=== PATIENT | female | born 1955 | race African-American/Black ===

== ENCOUNTER 2017-01-31 09:53 | Outpatient (CLI) | payer OTHER ==
--- NOTE | 2017-01-31 11:48 | MMO ---
BILATERAL SCREENING MAMMOGRAM: Date: 01/31/17 HISTORY: 61-year-old female. Routine screening mammography. COMPARISON: 01/09/16, 01/05/15, and 12/14/13. TECHNIQUE: CC and MLO views of both breasts are submitted for interpretation. This patient's mammogram was reviewed with the assistance of computer-aided detection. FINDINGS: The breasts are composed of scattered fibroglandular tissue. Bilaterally, no suspicious dominant mas s, architectural distortion, or suspicious calcifications. Benign-appearing calcification left breas t. Stable biopsy clip in the right breast. IMPRESSION: BIRADS 2: Benign Finding(s) RECOMMENDATION: Annual mammogram. POS: [facility]
== END 2017-01-31 09:54 | disposition home or self-care (01) ==
LOC: MAMMO 09:53
PROVIDERS: ATTEND Nurse Practitioner
DX: Z12.31 Encounter for screening mammogram for malignant neoplasm of breast (principal)
CPT/HCPCS: 77067; G0202

== ENCOUNTER 2017-04-11 12:50 | Emergency (ER) | payer OTHER | END 2017-04-11 14:43 | disposition home or self-care (01) | LOC: ERS 12:50 | DX: K05.00 Acute gingivitis, plaque induced (principal); K02.9 Dental caries, unspecified; E78.5 Hyperlipidemia, unspecified; M10.9 Gout, unspecified; I10 Essential (primary) hypertension; Z79.82 Long term (current) use of aspirin; Z79.899 Other long term (current) drug therapy | CPT/HCPCS: 99282 ==

== ENCOUNTER 2017-07-04 18:21 | Observation (INO) | payer OTHER ==
[2017-07-04] MEDS ORDERED: Morphine 4 MG/ML VIAL ONE (22:12)
[2017-07-04 22:54] VITALS: BMI 34.4
[2017-07-05] MEDS: Acetaminophen 500 MG TAB PO PRN ×2 (04:53→15:52)
[2017-07-05] MEDS ORDERED: Acetaminophen 500 MG TAB PO SCH (05:00)
[2017-07-05] MEDS ORDERED: Aspirin 325 MG TAB PO SCH (09:00)
--- NOTE | 2017-07-05 12:00 | HP ---
PRIMARY CARE PHYSICIAN: Coby Wheat D.O. CHIEF COMPLAINT: Vision loss. HISTORY OF PRESENT ILLNESS: Ms. Samuel is a pleasant 62-year-old lady who was seen at [facility] on 07/05/2017. She reports that she developed vision deficits in the right eye over the last 4 days. She reports th at it is the lateral vision that is affected. She also reports left-sided headache, sharp, 8/10, non radiating, on and off. No known aggravating or relieving factors, accompanied by nausea and dizzines s. She reports generalized body cramps. When I saw her, she reported that headache has resolved. S he also reports that her vision deficit has resolved. She denied any other motor or sensory symptoms, although she reported paresthesias while she was in [facility] emergency room. REVIEW OF SYSTEMS: The following complete review of systems was negative, unless otherwise mentioned in the HPI or below: Constitutional: Weight loss or gain, ability to conduct usual activities. Skin: Rash, itching. Eyes: Double vision, pain. ENT/Mouth: Nose bleeding, neck stiffness, pain, tenderness. Cardiovascular: Palpitations, dyspnea on exertion, orthopnea. Respiratory: Shortness of breath, wheezing, cough, hemoptysis, fever or night sweats. Gastrointestinal: Poor appetite, abdominal pain, heartburn, nausea, vomiting, constipation, or diarr hea. Genitourinary: Urgency, frequency, dysuria, nocturia. Musculoskeletal: Pain, swelling. Neurologic/Psychiatric: Anxiety, depression. Allergy/Immunologic: Skin rash, bleeding tendency. PAST MEDICAL HISTORY: Significant for dyslipidemia, gout, hypertension, and obesity. PAST SURGICAL HISTORY: Hysterectomy. SOCIAL HISTORY: The patient denies tobacco use, alcohol use or recreational drug use. FAMILY HISTORY: She denies any family history of stroke. ALLERGIES: No known drug allergies. CURRENT MEDICATIONS: Allopurinol 100 mg daily, aspirin 81 mg daily, lisinopril 10 mg daily and multi vitamins 1 tablet daily. PHYSICAL EXAMINATION: GENERAL: On examination, Ms. Samuel is awake and alert, not in acute distress. VITAL SIGNS: Blood pressure is 106/61, pulse is 90. She is breathing at rate of 18, and saturating 97% on room air. She is afebrile. She is obese, with BMI of 34.4. EYES: No scleral icterus. No conjunctival pallor. ENT: Moist mucosal membranes, no oropharyngeal erythema or exudates. NECK: Supple, nontender, normal range of movement. Trachea is midline. RESPIRATORY: Accessory muscles of breathing are not active. Chest wall movements are symmetric bila terally. LUNGS: Clear to auscultation without wheeze, rhonchi or crepitations. CARDIOVASCULAR: S1 and S2 are heard, regular. Peripheral pulses palpable. No carotid bruit, no per icardial rub. ABDOMEN: Soft, nontender, bowel sounds heard, no hepatomegaly, no splenomegaly. NEUROLOGIC: Cranial nerves II-XII are intact. In particular, no visual field deficits on confrontat ional field testing. No focal motor or sensory deficits. Deep tendon reflexes 2+, plantar reflexes downgoing bilaterally. SKIN: No rashes or subcutaneous nodules. MUSCULOSKELETAL: Power is 5/5 in all 4 extremities. Normal range of movement at all major extremity joints. LYMPHATIC: No cervical lymphadenopathy. PSYCHIATRIC: Normal mood, normal affect, patient is oriented to person, place, and time. IMAGING DATA AND LABORATORY DATA: Ms. Samuel's labs and investigations were reviewed. I reviewed her electrocardiogram, which shows sinus bradycardia, no ST changes to suggest an acute coronary syndrom e. I also reviewed her noncontrast CT scan of the brain, which showed diffuse chronic ischemic torres es with any acute findings. She has a normal ESR, elevated C-reactive protein of 0.85, unremarkable CBC, normal INR of 1.0, unremarkable comprehensive metabolic profile. ASSESSMENT AND PLAN: Ms. Samuel is a pleasant 62-year-old lady who was seen at [facility] on 07/05/2017. Her problem list includes: 1. Ischemic cerebrovascular accident: Suspected, based on her presentation. Her symptoms lasted mo re than 24 hours. Temporal arteritis is less likely. She is nontender over the left judaism. Her vi joan symptoms are contralateral to the headache. We will continue her on aspirin, start statin and c heck fasting lipid profile. Neurology Service has been consulted by emergency room physician. 2. She is also awaiting MR angiogram of head and neck as well as MRI of the brain and a 2D echocardi ogram. 3. Gout: Continue allopurinol. Gout is stable. 4. Hypertension: Monitor vital signs, titrate antihypertensives as needed. 5. Obesity: Patient to follow up with her primary care physician. Many thanks for allowing me to participate in your patient's care. Please feel free to contact me wi th any questions or concerns. LEVEL OF RISK: High. LEVEL OF COMPLEXITY: High.
--- NOTE | 2017-07-05 15:23 | MRI ---
MRI BRAIN WITH AND WITHOUT CONTRAST: CLINICAL HISTORY: Pain, right side headache, left side visual disturbance. COMPARISON: Reference is made to preceding noncontrast head CT, previous day. FINDINGS: There is no acute territorial infarction, mass effect, midline shift, or ventriculomegaly. Moderate chronic microvascular ischemic disease is present involving the bilateral cerebral white matter. No pathologic intraaxial enhancement evident. There is no hemorrhagic susceptibility, intracranially. T here is partially empty sella noted. IMPRESSION: 1. No acute territorial infarction or mass effect. 2. Moderate chronic microvascular ischemic disease. POS: [facility]
--- NOTE | 2017-07-05 15:31 | MRI ---
MRI NATIVE OF [place] NONCONTRAST WITH 3D VOLUME RENDERING: CLINICAL HISTORY: Headache and visual disturbance, pain. FINDINGS: There is no high-grade stenosis or occlusion involving the arterial segment of the [place]. No discrete intracranial aneurysm is present. There is redundancy and tortuosity of the A1 segment right DAPHNEY. Tortuous and the adjacent skull base limit visualization of the skull base course of the terminal ICA bilaterally. The imaged distal vertebral and basilar artery are patent. IMPRESSION: No significant abnormality of the [place] identified. POS: [facility]
--- NOTE | 2017-07-05 15:33 | CON ---
DATE OF CONSULTATION: 07/05/2017 REFERRING PHYSICIAN: Perfecto Medrano D.O. REASON FOR CONSULTATION: Right side vision loss and headache. HISTORY OF PRESENT ILLNESS: Ms. Samuel is a pleasant 62-year-old -[place] female, who has bee n considered for evaluation of left-sided headache and right-sided blurry vision. She reports that s he was working on Friday while at work, she developed the blurry vision in her periphery of her ri ght eye. She felt like there was film onto the periphery of the right side. She also noted headache onto the left frontotemporal region. She also started noticing dizziness and lightheadedness where she felt like she was going to pass out. She continued to have these symptoms over the next 3 days a nd as her symptoms were not improving, she decided to present to the [facility]. She states that she continues to have the headache on the left side. She has no prior history of headach es, although she did have episodes of migraine several years ago, but has not had in the past few yea rs. She denies chest pain, palpitation, dysarthria, dysphagia, difficulty with balance, numbness, an d tingling or weakness in upper or lower extremities. PAST MEDICAL HISTORY: Significant for hypertension, dyslipidemia, obesity, and gout. PAST SURGICAL HISTORY: Significant for hysterectomy. SOCIAL HISTORY: She denies smoking, alcohol use, or illicit drug use. She is . She currentl y works in a correction. FAMILY HISTORY: None significance. CURRENT MEDICATIONS: Please review MAR. ALLERGIES: No known drug allergies. REVIEW OF SYSTEMS: As mentioned above in HPI, otherwise negative. PHYSICAL EXAMINATION: VITAL SIGNS: Blood pressure of 132/76, pulse of 66, temperature of 97.8, respirations of 18, O2 sats 98% on room air. GENERAL: Well-developed, well-nourished -[place] female, in no apparent distress. RESPIRATORY: Clear to auscultation bilaterally. CARDIOVASCULAR: Regular rate and rhythm. NEUROLOGIC: Mental status: The patient is awake, alert, and oriented x3. Speech and language: Flu ent speech. Cranial nerves: Pupils are 3 mm and reactive. Visual alonso are intact. External musc les are intact. No nystagmus is noted. Face is symmetric. Tongue and uvula midline. Motor exam sh owed normal tone and bulk with 5/5 strength in both lower extremities. Sensory: Sensation is intact and symmetric. Deep tendon reflexes: 2+ reflexes in both upper and lower extremities. Babinski: Plantar responses flexion bilaterally. Coordination intact to [id number]-[id number]-yypetg tapping bilaterally . LABORATORY DATA: Reviewed, which included CBC, CMP, TSH, vitamin D, lipid profile, sedimentation rat e and CRP, which is significant for CRP of 0.85. Sed rate of 43, otherwise unremarkable. IMAGING STUDIES: MRI brain without contrast was reviewed which showed no acute intracranial abnormal ity. MRI head and neck were reviewed, which showed no intracranial or extracranial vascular abnormal ity. Official reports are still pending. IMPRESSION: 1. Blurry vision on the right eye. 2. Headache. DISCUSSION: Ms. Samuel is a pleasant 62-year-old -[place] female, who presented with the epis ode of blurry vision in the right eye along with headache on the left frontotemporal region. I have reviewed her MRI brain and MRA head and neck which are unremarkable. At this time, I have also revie wed her sed rate and CRP, which are mildly elevated. Based on the description of her symptoms, I do not think that she has temporal arteritis. Also, her sed rate and CRP are very mildly elevated, whic h does not correlate with temporal arteritis. I have advised her that she needs to be seen by ophtha lmologist as outpatient to be further evaluated. Her headaches are likely migraine in origin. I wou ld recommend giving her IV Depacon 500 mg 1 time dose to help with the headache. If her headache is better, she is okay to be discharged to home with follow up with high pressure kettle operator as outpatient who ca n decide whether she needs a temporal artery biopsy. Thank you for consultation.
--- NOTE | 2017-07-05 16:33 | MRI ---
MRA NECK WITH AND WITHOUT CONTRAST AND WITH 3D REFORMATTED IMAGING 07/05/17 CLINICAL HISTORY: Pain, headache, visual disturbance, clinical evidence of CVA. FINDINGS: The proximal great vessels are limited in assessment by artifact. No obvious high grade stenosis is seen at the origins that emanate from the aortic arch level. Visualized bilateral subclavian arteries are grossly patent. Bilateral vertebral arteries demonstrate a patent course without high grade sten osis or occlusion. Limited visualization at the origin of each common carotid artery, but otherwise n o high grade stenosis or occlusion. There is mild irregularity at the origin of the cervical left ICA which may be on the basis of atherosclerosis, without an obvious hemodynamically significant stenosi s. IMPRESSION: Mild atherosclerosis involving the origin of the cervical left ICA. No high grade stenosis or occlusi on involving the major arterial system of the neck. POS: [facility]
[2017-07-05] MEDS ORDERED: Atorvastatin Calcium 20 MG TAB PO SCH (21:00)
[2017-07-06 04:07] VITALS: TEMP 97.5
[2017-07-06 05:31] LABS: Cardiac Risk 4.5 (Less than 4.5)
[2017-07-06] MEDS ORDERED: Aspirin 325 mg Enteric Coated Tablet PO SCH (09:00)
[2017-07-06] MEDS ORDERED: Multivit, Therapeutic 1 TAB PO SCH (09:00)
[2017-07-06] MEDS ORDERED: Lisinopril 10 MG TAB PO SCH (09:00)
[2017-07-06] MEDS ORDERED: Allopurinol 100 MG TAB PO SCH (09:00)
--- NOTE | 2017-07-06 11:18 | PDOC.PN ---
- Subjective Encounter Start Date: 07/06/17 Encounter Start Time: 07:20 -: old records requested/rev Patient seen and examined. No new complaints. No overnight events - Objective MAR Reviewed: Yes Vital Signs & Weight: Vital Signs (12 hours) Temp Pulse Resp BP Pulse Ox 07/06/17 08:00 97.5 F L 54 L 16 134/78 97 07/06/17 07:33 97.5 F L 62 12 07/06/17 04:00 97.5 F L 62 12 149/72 H 96 07/06/17 00:00 97.8 F 55 L 16 141/78 H 97 Weight Weight 219 lb 12.8 oz I&O: 07/05/17 07/06/17 07/07/17 06:59 06:59 06:59 Intake Total 480 Output Total 0 Balance 480 Radiology Reviewed by me: Yes (MRI, MRA) EKG Reviewed by me: Yes (NSR) Phys Exam - Physical Examination Constitutional: NAD HEENT: PERRLA, moist MMs, sclera anicteric Neck: no JVD, supple Respiratory: no wheezing, no rales, no rhonchi Cardiovascular: RRR, no significant murmur, no rub Gastrointestinal: soft, non-tender, no distention, positive bowel sounds Musculoskeletal: no edema, pulses present Neurological: non-focal, normal sensation, moves all 4 limbs Psychiatric: normal affect, A&O x 3 Skin: no rash, normal turgor Dx/Plan (1) Blurred vision, left eye Code(s): H53.8 - OTHER VISUAL DISTURBANCES Status: Acute (2) Headache Code(s): R51 - HEADACHE Status: Acute (3) Dyslipidemia Code(s): E78.5 - HYPERLIPIDEMIA, UNSPECIFIED Status: Chronic (4) Gout Code(s): M10.9 - GOUT, UNSPECIFIED Status: Chronic (5) Hypertension Code(s): I10 - ESSENTIAL (PRIMARY) HYPERTENSION Status: Chronic (6) Obesity (BMI 30.0-34.9) Code(s): E66.9 - OBESITY, UNSPECIFIED Status: Chronic - Plan cont current plan of care * medication reviewed as below * symptomatic treatment * discharge today * see discharge summery. Review of Systems - Review of Systems Eyes: negative: Pain, Vision Change, Conjunctivae Inflammation, Eyelid Inflammation, Redness, Other ENT: negative: Ear Pain, Ear Discharge, Nose Pain, Nose Discharge, Nose Congestion, Mouth Pain, Mouth Swelling, Throat Pain, Throat Swelling, Other Respiratory: negative: Cough, Dry, Shortness of Breath, Hemoptysis, SOB with Excertion, Pleuritic Pain, Sputum, Wheezing Cardiovascular: negative: chest pain, palpitations, orthopnea, paroxysmal nocturnal dyspnea, edema, light headedness, other Gastrointestinal: negative: Nausea, Vomiting, Abdominal Pain, Diarrhea, Constipation, Melena, Hematochezia, Other Genitourinary: negative: Dysuria, Frequency, Incontinence, Hematuria, Retention , Other Musculoskeletal: negative: Neck Pain, Shoulder Pain, Arm Pain, Back Pain, Hand Pain, Leg Pain, Foot Pain, Other Skin: negative: Rash, Lesions, Virgil, Bruising, Other - Medications/Allergies Allergies/Adverse Reactions: Allergies Allergy/AdvReac Type Severity Reaction Status Date / Time No Known Allergies Allergy Verified 07/04/17 22:51 Medications: Current Medications Acetaminophen (Tylenol) 1,000 mg PO Q6H PRN PRN Reason: Headache/Fever or Pain Last Admin: 07/05/17 15:52 Dose: 1,000 mg Allopurinol (Zyloprim) 100 mg PO DAILY [facility] Last Admin: 07/06/17 08:30 Dose: 100 mg Aspirin (Ecotrin) 325 mg PO DAILY [facility] Last Admin: 07/06/17 08:30 Dose: 325 mg Atorvastatin Calcium (Lipitor) 20 mg PO HS [facility] Last Admin: 07/05/17 20:41 Dose: 20 mg Lisinopril (Zestril) 10 mg PO DAILY [facility] Last Admin: 07/06/17 08:30 Dose: 10 mg Multivitamins (Theragran) 1 tab PO DAILY [facility] Last Admin: 07/06/17 08:31 Dose: 1 tab Sodium Chloride (Flush - Normal Saline) 10 ml IVF PRN PRN PRN Reason: Saline Flush
[2017-07-06 12:19] VITALS: BP 134/84
--- NOTE | 2017-07-06 13:07 | DIS ---
DATE OF ADMISSION: 07/04/2017 DATE OF DISCHARGE: 07/06/2017 PRIMARY CARE PHYSICIAN: Dr. Fredo Ragland. DISCHARGE DISPOSITION: Home. PRIMARY DISCHARGE DIAGNOSES: Blurred vision in left eye, resolved; headache, likely due to migraine. SECONDARY DISCHARGE DIAGNOSES: Obesity with body mass index 34, hypertension, gout, and dyslipidemia . PRIMARY PROCEDURE/OPERATION: None. RADIOLOGICAL INVESTIGATION: MRI brain normal. Neck MRA normal. SIGNIFICANT LABORATORY DATA: ESR 43. CBC normal. CRP 0.85, LDL 155. DISCHARGE MEDICATIONS: Allopurinol 100 mg p.o. daily, aspirin 81 mg p.o. daily, Lipitor 20 mg p.o. a t bedtime, lisinopril 10 mg p.o. daily, and multivitamin 1 tablet p.o. daily. CONTRAINDICATIONS: None. CODE STATUS: FULL CODE. INPATIENT ASPNET DEVELOPER: Dr. Сергей Velasquez was consulted while in hospital. TEST RESULTS PENDING ON DISCHARGE: None. ALLERGIES: No known drug allergy. DISCHARGE PLAN: Post hospital, patient will follow up with primary care physician as instructed. HOSPITAL COURSE: A 62-year-old female with above-mentioned medical problem, who came to emergency ro om with complaint of blurred vision in her left eye along with headache. The patient had CT brain wh ich was normal. Her neurological examination was normal. We consulted Neurology and they were not s uspecting any temporal arteritis. The patient's blurred vision was improved next day. Her headache resolved and that headache improved with sodium valproic acid. We suspected migraine and possibly bl urred vision also related with migraine as well, but we advised this patient to follow up with Ophtha lmology as an outpatient basis. Her LDL cholesterol was high and that is why we started Lipitor on h er discharge medications. Rest of medication will be continued as per previous. The patient is seen and examined at bedside today. Please see my progress note from today for furthe r details.
--- NOTE | 2017-07-12 20:13 | EKG ---
Test Reason : Blood Pressure : / mmHG Vent. Rate : 055 BPM Atrial Rate : 055 BPM P-R Int : 176 ms QRS Dur : 084 ms QT Int : 464 ms P-R-T Axes : 025 -11 071 degrees QTc Int : 443 ms Sinus bradycardia Minimal voltage criteria for LVH, may be normal variant Abnormal ECG Confirmed by NATANAEL BUSH ([id number]), science editor JOSE TORRES ([id number]) on 07/12/2017 8:12:36 PM Referred By: Confirmed By:NATANAEL BUSH
== END 2017-07-06 15:05 | disposition home or self-care (01) ==
LOC: ERS 18:21 → 2SE 20:21
PROVIDERS: ADMIT Internal Medicine; ATTEND Internal Medicine
DX: H53.8 Other visual disturbances (principal); R51 Headache; I10 Essential (primary) hypertension; M10.9 Gout, unspecified; E78.5 Hyperlipidemia, unspecified; I65.22 Occlusion and stenosis of left carotid artery; E66.9 Obesity, unspecified; Z68.34 Body mass index [BMI] 34.0-34.9, adult; Z79.82 Long term (current) use of aspirin; Z79.899 Other long term (current) drug therapy
CPT/HCPCS: 36415; 70544; 70549; 70553; 80061; 85652; 86140; 93005; 93306; 96374; G0378; J2270

== ENCOUNTER 2019-04-28 20:30 | Outpatient (CLI) | payer MEDICARE | END 2019-04-28 20:31 | disposition home or self-care (01) | LOC: SLEEPLAB 20:30 | PROVIDERS: ATTEND Nurse Practitioner | DX: G47.33 Obstructive sleep apnea (adult) (pediatric) (principal); R06.83 Snoring; E66.9 Obesity, unspecified; I10 Essential (primary) hypertension | CPT/HCPCS: 95810 ==

== ENCOUNTER 2019-05-15 20:02 | Observation (INO) | payer MEDICARE ==
[2019-05-15] MEDS ORDERED: Lorazepam 2 MG/ML VIAL ONE (21:32)
[2019-05-15 22:42] VITALS: BMI 38.8
[2019-05-16] MEDS ORDERED: Acetaminophen 650 MG Suppository PR PRN (00:06)
[2019-05-16] MEDS: Sodium Chloride 0.45% 1,000 ML IV SCH ×2 (01:00→15:25)
[2019-05-16 01:01] LABS: Troponin I Less than 0.010 ng/mL (< 0.028)
--- NOTE | 2019-05-16 01:07 | HP ---
TIME OF ASSESSMENT: 0. CHIEF COMPLAINT: Diffuse muscle cramping and chest pain. HISTORY OF PRESENT ILLNESS: Ms. Samuel is a 64-year-old woman, with known history of hyperlipidemia, hypertension, and gout, who presents due to diffuse leg cramping that started yesterday. The patient states she noticed cramping in her calves at night and in her feet. Reports cramping in her arms when she uses her arms to set herself up. She states this was worse today and she has felt generally drained. Reports noting some dysuria for the last week. Also reports having 1 episode of chest pain yesterday that lasted 5 minutes and was in the left side of her chest, right underneath the breast. The patient describes this as a squeezing, which again only lasted 5 minutes and resolved on its own. She had no associated shortness of breath. Denies having any cough or hemoptysis. No recent fevers. States that discomfort was nonradiating. It seemed to be relieved after belching. Today, the patient denies experiencing any chest pain. She initially presented to [place] [facility] and had an EKG done there that showed new T-wave inversion in the lateral leads. Therefore, she was referred here for ACS rule out. In the emergency department here, she had a repeat EKG that was normal with no ST changes or T-wave abnormalities. She had a heart rate of 65. The patient had been given aspirin and 1 L of normal saline at [place] [facility]. Here, she was given 1 mg of lorazepam IV. She has had a chest x-ray done showing no acute cardiopulmonary process. Of note, the patient has had an echo done in the past in July 2017, which showed an EF of 50% to 55% with mildly dilated left atrium, mild MR, AR, and TR. The patient has had a urinalysis done which was notable for 100 of protein, otherwise unremarkable. PAST MEDICAL HISTORY: 1. Hypertension. 2. Hyperlipidemia. 3. Gout. 4. Nephrolithiasis. PAST SURGICAL HISTORY: Hysterectomy. SOCIAL HISTORY: The patient denies any tobacco use, alcohol consumption, or illicit drug use. ALLERGIES: NO KNOWN DRUG ALLERGIES. CURRENT MEDICATIONS: 1. Allopurinol. 2. Aspirin. 3. Lisinopril. 4. Multivitamin. 5. Atorvastatin. PHYSICAL EXAMINATION: GENERAL: The patient appears well developed, well nourished, is in no acute distress. VITAL SIGNS: Temperature 97.5, pulse 69, respirations 16, O2 saturation 98% on room air, blood pressure 153/74. HEENT: Normocephalic and atraumatic. Pupils are equal, round, and reactive to light. Sclerae without icterus. Oropharynx is clear. NECK: Supple. LUNGS: Clear to auscultation bilaterally without any wheezes, rales, or rhonchi. CARDIAC: Regular rate and rhythm without audible murmurs, rubs, or gallops. No reproducible chest wall tenderness. ABDOMEN: Soft, nontender, nondistended. Normoactive bowel sounds present. No guarding or rigidity. No renal angle tenderness. EXTREMITIES: No lower extremity edema. NEUROLOGIC: Alert and oriented x3. SKIN: Warm and dry. INVESTIGATIONS: As mentioned above in HPI. IMPRESSION AND PLAN: Ms. Samuel is a 64-year-old woman who presents with diffuse muscle cramping since yesterday, occurring in her arms and legs, at times abdomen. The patient states she has been more active recently helping a friend clean her home, but states she has been trying to maintain adequate hydration. LABORATORY STUDIES: Notable for EYAL. BUN 21, creatinine 1.19, GFR 55. The patient's symptoms likely associated with dehydration. Potassium is within normal range, but we will check her magnesium level. CK is elevated. ASSESSMENT AND PLAN: 1. Chest pain. The patient reported having 1 episode of chest pain yesterday, lasting 5 minutes and has not recurred since then. EKG had shown T-wave inversion at [facility] and when repeated here, it was unremarkable. Given her past medical history, she was admitted for acute coronary syndrome workup. Troponins have been negative x3. We will go ahead and plan to keep her n.p.o. with plans to have her undergo a stress test, which she has not had done in the past. 2. Hypertension. Monitor blood pressure and resume home medications once verified. 3. Hyperlipidemia. Continue home medications. 4. Gastrointestinal prophylaxis with famotidine. 5. Code status is full. Surrogate decision maker is her , Evelio Samuel. The patient's case was discussed with attending who agrees upon the care as described above. Job ID: [id number]
[2019-05-16 05:22] LABS: #Eosinphils 0.2 thou/uL (0.0-0.7); #Lymphocytes 2.9 thou/uL (1.20-3.40); #Monocytes 0.5 thou/uL (0.11-0.59); #Neutrophils 4.3 thou/uL (1.40-6.50); %Basophils 0.4 % (0.0-1.0); %Eosinophils 2.2 % (0.0-10.0); %Monocytes 6.7 % (0.0-10.0); %Neutrophils 53.8 % (42.0-75.0); Hemoglobin 12.4 g/dL (12.0-16.0); Mean Corpuscular HGB CONC 32.8 g/dL (32.0-36.0); Mean Corpuscular Hemoglobin 26.8 pg (27.0-31.0); Mean Corpuscular Volume 81.5 fL (78.0-98.0); Mean Platelet Volume 9.2 fL (7.4-10.4); Platelet Count 211 thou/uL (130-400); RBC Distribution Width 14.6 % (11.5-14.5); Red Blood Cell (RBC) Count 4.65 mill/uL (4.20-5.40); White Blood Cell (WBC) Count 7.9 thou/uL (4.8-10.8)
[2019-05-16 05:45] LABS: Anion Gap 11 mmol/L (10-20); BUN (Urea Nitrogen) 18 mg/dL (9.8-20.1); Calc. Creatinine Clearance 103 mL/min (70-130); Calcium 9.4 mg/dL (7.8-10.44); Carbon Dioxide 25 mmol/L (23-31); Chloride 105 mmol/L (98-107); Estimated GFR-MDRD 76; Glucose 108 mg/dL (80-115); Potassium 3.7 mmol/L (3.5-5.1); Sodium 137 mmol/L (136-145)
[2019-05-16 05:50] LABS: Troponin I Less than 0.010 ng/mL (< 0.028)
[2019-05-16] MEDS: Allopurinol 100 MG TAB PO SCH (12:22)
[2019-05-16] MEDS: Aspirin 325 mg Enteric Coated Tablet PO SCH (12:22)
[2019-05-16] MEDS: Multivit, Therapeutic 1 TAB PO SCH (12:23)
[2019-05-16] MEDS: Lisinopril 10 MG TAB PO SCH (12:23)
[2019-05-16] MEDS: Famotidine/PF 20 mg/2ml Vial SLOW IVP SCH ×2 (12:23→19:55)
--- NOTE | 2019-05-16 13:25 | PDOC.HOSPP ---
- Subjective Encounter Date: 05/16/19 Encounter Time: 13:20 Subjective: No sxs of chest pain this AM. No overnight issues. Pending resting portion of stress test. - Objective Vital Signs & Weight: Vital Signs (12 hours) Temp Pulse Resp BP BP Pulse Ox 05/16/19 12:23 136/63 05/16/19 11:35 98.2 F 70 24 H 136/63 98 05/16/19 07:52 97.8 F 66 12 140/72 95 05/16/19 03:50 98.4 F 73 14 129/72 100 Weight Weight 233 lb 6.4 oz I&O: 05/15/19 05/16/19 05/17/19 06:59 06:59 06:59 Intake Total 990 Output Total 1100 Balance -110 Result Diagrams: 05/16/19 05:04 05/16/19 05:04 Hospitalist ROS - Review of Systems Constitutional: denies: fever, chills, sweats, weakness, malaise, other Respiratory: denies: cough, dry, shortness of breath, hemoptysis, SOB with excertion, pleuritic pain, sputum, wheezing, other Cardiovascular: denies: chest pain, palpitations, orthopnea, paroxysmal noc. dyspnea, edema, light headedness, other Gastrointestinal: denies: nausea, vomiting, abdominal pain, diarrhea, constipation, melena, hematochezia, other - Medication Medications: Active Medications Generic Name Dose Route Start Last Admin Trade Name Freq PRN Reason Stop Dose Admin Allopurinol 100 mg 05/16/19 09:00 05/16/19 12:22 Zyloprim PO 100 mg DAILY CHARLI Administration Aspirin 81 mg 05/16/19 09:00 05/16/19 12:22 Ecotrin PO 81 mg DAILY CHARLI Administration Famotidine 20 mg 05/16/19 09:00 05/16/19 12:23 Pepcid SLOW IVP 20 mg Q12HR CHARLI Administration Sodium Chloride 1,000 mls @ 75 mls/hr 05/16/19 00:15 05/16/19 01:00 1/2 Normal Saline IV 1,000 mls .[id number] CHARLI Administration Lisinopril 20 mg 05/16/19 09:00 05/16/19 12:23 Zestril PO 20 mg DAILY CHARLI Administration Multivitamins 1 tab 05/16/19 09:00 05/16/19 12:23 Theragran PO 1 tab DAILY CHARLI Administration - Exam General Appearance: NAD, awake alert Eye: PERRL, anicteric sclera ENT: normocephalic atraumatic, no oropharyngeal lesions, moist mucosa Neck: supple, symmetric, no JVD, no thyromegaly, no lymphadenopathy, no carotid bruit Heart: RRR, no murmur, no gallops, no rubs, normal peripheral pulses Respiratory: CTAB, no wheezes, no rales, no ronchi, normal chest expansion, no tachypnea, normal percussion Gastrointestinal: soft, non-tender, non-distended, normal bowel sounds, no palpable masses, no hepatomegaly, no splenomegaly, no bruit Extremities: no cyanosis, no clubbing, no edema Skin: normal turgor, no lesions, no rashes Neurological: cranial nerve grossly intact, normal sensation to touch, no weakness, no focal deficits, no new deficit Musculoskeletal: normal tone, normal strength, no muscle wasting Psychiatric: normal affect, normal behavior, A&O x 3 Hosp A/P (1) Chest pain Code(s): R07.9 - CHEST PAIN, UNSPECIFIED Status: Acute (2) Dyslipidemia Code(s): E78.5 - HYPERLIPIDEMIA, UNSPECIFIED Status: Chronic (3) Hypertension Code(s): I10 - ESSENTIAL (PRIMARY) HYPERTENSION Status: Chronic (4) Obesity (BMI 30.0-34.9) Code(s): E66.9 - OBESITY, UNSPECIFIED Status: Chronic - Plan Contiunue aspirin and lisinorpil, appears to have cramps from statin intolerance , will hold while she is here Continue other home medication Disposition: Pending stress test. If normal can likely be d/c tomorrow.
[2019-05-16] MEDS: Acetaminophen 325 MG TAB PO PRN ×2 (16:09→23:32)
[2019-05-16] MEDS ORDERED: Atorvastatin Calcium 20 MG TAB PO SCH (21:00)
[2019-05-17] MEDS: Sodium Chloride 0.45% 1,000 ML IV SCH (03:04)
[2019-05-17] MEDS ORDERED: ADENOSINE 60 MG/20 ML VIAL ONE (09:50)
--- NOTE | 2019-05-17 10:01 | NM ---
EXAM: CARDIAC SPECT HISTORY: Chest pain, hypertension and dyslipidemia TECHNIQUE: A myocardial perfusion scan was performed using the single isotope 2 day protocol with carmel hnetium 99m sestamibi. [33] was injected intravenously for the rest exam followed by 30 mCi for the stress study. Pharmacologic stress with adenosine was monitored and interpreted by DARWIN Brand FINDINGS: Homogeneous tracer distribution is seen in the myocardial segments on stress and rest image s without fixed or reversible defects. Gated SPECT LVEF: 67% Wall motion exam: Normal IMPRESSION: Normal myocardial perfusion scan
--- NOTE | 2019-05-17 10:15 | PDOC.HOSPP ---
- Subjective Encounter Date: 05/17/19 Encounter Time: 11:10 Subjective: Patient with resolution of chest pain. Muscle cramps better when stop statin. - Objective Vital Signs & Weight: Vital Signs (12 hours) Temp Pulse Resp BP BP Pulse Ox 05/17/19 07:09 97.4 F L 59 L 16 138/74 100 05/17/19 03:52 98.0 F 63 18 161/77 H 96 05/16/19 23:00 97.5 F L 69 14 147/70 H 96 Weight Weight 233 lb 6.4 oz I&O: 05/16/19 05/17/19 05/18/19 06:59 06:59 06:59 Intake Total 990 350 Output Total 1100 Balance -110 350 Result Diagrams: 05/16/19 05:04 05/16/19 05:04 Hospitalist ROS - Review of Systems Constitutional: denies: fever, chills Respiratory: denies: cough, shortness of breath Cardiovascular: denies: chest pain, palpitations, orthopnea Gastrointestinal: denies: nausea, vomiting, abdominal pain - Medication Medications: Active Medications Generic Name Dose Route Start Last Admin Trade Name Freq PRN Reason Stop Dose Admin Acetaminophen 650 mg 05/16/19 00:06 05/16/19 23:32 Tylenol PO 650 mg Q4H PRN Administration Headache/Fever/Mild Pain (1-3) Allopurinol 100 mg 05/16/19 09:00 05/16/19 12:22 Zyloprim PO 100 mg DAILY CHARLI Administration Aspirin 81 mg 05/16/19 09:00 05/16/19 12:22 Ecotrin PO 81 mg DAILY CHARLI Administration Atorvastatin Calcium 20 mg 05/16/19 21:00 05/16/19 19:55 Lipitor PO Not Given HS CHARLI Famotidine 20 mg 05/16/19 09:00 05/16/19 19:55 Pepcid SLOW IVP 20 mg Q12HR CHARLI Administration Sodium Chloride 1,000 mls @ 75 mls/hr 05/16/19 00:15 05/17/19 03:04 1/2 Normal Saline IV Not Given .[id number] CHARLI Lisinopril 20 mg 05/16/19 09:00 05/16/19 12:23 Zestril PO 20 mg DAILY CHARLI Administration Multivitamins 1 tab 05/16/19 09:00 05/16/19 12:23 Theragran PO 1 tab DAILY CHARLI Administration - Exam General Appearance: NAD, awake alert ENT: moist mucosa Heart: RRR, no gallops, no rubs, normal peripheral pulses Heart - other findings: 2/6 ELVIA Respiratory: CTAB, no wheezes, no rales, no ronchi Gastrointestinal: soft, non-tender, non-distended, normal bowel sounds Psychiatric: normal affect, normal behavior, A&O x 3 Hosp A/P (1) Chest pain Code(s): R07.9 - CHEST PAIN, UNSPECIFIED Status: Resolved (2) Muscle cramping Code(s): R25.2 - CRAMP AND SPASM Status: Acute (3) Dyslipidemia Code(s): E78.5 - HYPERLIPIDEMIA, UNSPECIFIED Status: Chronic (4) Gout Code(s): M10.9 - GOUT, UNSPECIFIED Status: Chronic (5) Hypertension Code(s): I10 - ESSENTIAL (PRIMARY) HYPERTENSION Status: Chronic (6) Obesity (BMI 30.0-34.9) Code(s): E66.9 - OBESITY, UNSPECIFIED Status: Chronic - Plan Stress test negative. Can d/c home. Recommend decrease Atorvastatin and f/u with PCP.
[2019-05-17] MEDS: Lisinopril 10 MG TAB PO SCH (10:20)
[2019-05-17] MEDS: Multivit, Therapeutic 1 TAB PO SCH (10:21)
[2019-05-17] MEDS: Aspirin 325 mg Enteric Coated Tablet PO SCH (10:21)
[2019-05-17] MEDS: Allopurinol 100 MG TAB PO SCH (10:21)
[2019-05-17] MEDS: Famotidine/PF 20 mg/2ml Vial SLOW IVP SCH (10:22)
[2019-05-17 12:12] VITALS: BP 143/90; TEMP 98.8
--- NOTE | 2019-05-18 00:13 | DIS ---
DATE OF ADMISSION: 05/15/2019 DATE OF DISCHARGE: 05/17/2019 PRIMARY CARE PHYSICIAN: Pushpa Crump. REASON FOR ADMISSION: Chest pain. DIAGNOSES AT DISCHARGE: 1. Chest pain resolved, noncardiac. 2. Muscle cramping, likely from a statin side effect. 3. Dyslipidemia. 4. Gout. 5. Hypertension. 6. Obesity. PROCEDURES: Nuclear medicine stress testing showing normal myocardial perfusion scan. CONSULTATIONS: None. SUMMARY OF HOSPITAL COURSE: This is a 64-year-old woman with a known history of hyperlipidemia, hypertension, and gout, who has had trouble with recurrent muscle cramping previously went on a statin. She had this before as well that had been stopped. She then restarted on atorvastatin, a different statin and then started getting some cramping again, developed diffuse cramping at night especially in the feet and then developed some chest pain right before coming in. The chest pain lasted for 5 minutes in the left side of her chest. On initial presentation to the [facility], she had some new T-wave inversions in her lateral leads, so she was transferred over here. Her cardiac markers were negative x3 and she had no further changes on her EKG. No further chest pain in the hospital. She had a nuclear medicine stress test, which was negative and she was doing well on the day of discharge and is being discharged home. DISCHARGE MANAGEMENT: Discharged home. FOLLOWUP: Follow up with primary care doctor in 7 days. ACTIVITY: As tolerated. DIET: Healthy heart, low-sodium diet. MEDICATIONS: 1. Atorvastatin 20 mg, try a half tab daily and see if this works better. 2. Allopurinol 100 mg daily. 3. Aspirin 81 mg daily. 4. Lisinopril 20 mg daily. 5. Multivitamin daily. Job ID: [id number]
--- NOTE | 2019-05-18 05:41 | STRESS ---
Acquisition Time: 2019-05-16 09:12:56 Total Exercise Time: 00:04:00 Test Indications: CHEST PAIN Medications: Protocol: ADENOSINE Max HR: 086 BPM 55% of Pred: 154 BPM Max BP: 116/078 mmHG Max Work Load: 1.0 METS RESTING ECG: NORMAL SINUS RHYTHM AT 62 BPM SYMPTOMS: CHEST PAIN AND SHORTNESS OF BREATH NORMAL BP RESPONSE ECTOPY: NONE ECG STRESS: NO SIGNIFICANT CHANGES INTERPRETATION: NEGATIVE ECG/AWAIT NUCLEAR IMAGES FOR DEFINITIVE DIAGNOSIS Confirmed by MARY ARAGON ELLEN ([id number]) on 05/18/2019 5:41:33 AM Referred By: DARWIN PRINCE Confirmed By:LIZ ARAGON PA-C
--- NOTE | 2019-05-22 14:08 | EKG ---
Test Reason : Blood Pressure : / mmHG Vent. Rate : 065 BPM Atrial Rate : 065 BPM P-R Int : 198 ms QRS Dur : 080 ms QT Int : 422 ms P-R-T Axes : 062 -20 071 degrees QTc Int : 438 ms Normal sinus rhythm Moderate voltage criteria for LVH, may be normal variant Cannot rule out Septal infarct , age undetermined Abnormal ECG Confirmed by SOPHIA QUACH DO ([id number]), newspaper editor managing ALDO ROCK ([id number]) on 05/22/2019 2:08:14 PM Referred By: Confirmed By:SOPHIA QUACH DO
== END 2019-05-17 16:01 | disposition home or self-care (01) ==
LOC: ERS 20:02 → 2SW 22:23
PROVIDERS: ADMIT Internal Medicine; ATTEND Internal Medicine
DX: R07.89 Other chest pain (principal); R25.2 Cramp and spasm; E78.5 Hyperlipidemia, unspecified; M10.9 Gout, unspecified; I10 Essential (primary) hypertension; E66.9 Obesity, unspecified; Z68.38 Body mass index [BMI] 38.0-38.9, adult; Z79.82 Long term (current) use of aspirin; Z79.899 Other long term (current) drug therapy
CPT/HCPCS: 78452; 80048; 83735; 83880; 84484 ×3; 85025; 93005; 93017; 94760 ×2; 96374; 96375; 96376 ×2; 97139; 99285; A9500; G0378 ×4; 36415; J0153; J2060; S0028

== ENCOUNTER 2019-05-28 11:17 | Outpatient (CLI) | payer MEDICARE ==
--- NOTE | 2019-05-28 15:13 | MMO ---
Bilateral MAMMO Bilat Screen [facility]. CLINICAL HISTORY: Patient is 64 years old and is seen for screening. VIEWS: The views performed were: . FILMS COMPARED: The present examination has been compared to prior imaging studies performed at [facility] on 12/14/2013, 01/05/2015, 01/09/2016 and 01/31/2017. This study has been interpreted with the assistance of computer-aided detection. MAMMOGRAM FINDINGS: There are scattered fibroglandular densities. There is a biopsy clip seen in the right breast. There are no suspicious masses, suspicious calcifications, or new areas of architectural distortion. IMPRESSION: THERE IS NO MAMMOGRAPHIC EVIDENCE OF MALIGNANCY. A ROUTINE FOLLOW-UP MAMMOGRAM IN 1 YEAR IS RECOMMENDED. THE RESULTS OF THIS EXAM WERE SENT TO THE PATIENT. ACR BI-RADS Category 2 - Benign finding MAMMOGRAPHY NOTE: 1. A negative mammogram report should not delay a biopsy if a dominant of clinically suspicious mass is present. 2. Approximately 10% to 15% of breast cancers are not detected by mammography. 3. Adenosis and dense breasts may obscure an underlying neoplasm. Reported by: CARMEN GIBSON MD Electonically Signed: [id number]
== END 2019-05-28 11:18 | disposition home or self-care (01) ==
LOC: BICMAMMO 11:17
PROVIDERS: ATTEND Nurse Practitioner
DX: Z12.31 Encounter for screening mammogram for malignant neoplasm of breast (principal)
CPT/HCPCS: 77063; 77067

== ENCOUNTER 2021-07-30 08:00 | Inpatient (IN) | payer MEDICARE, MEDICAID ==
[2021-07-30 08:18] LABS: #Basophils 0.1 thou/uL (0.0-0.2); #Eosinphils 0.2 thou/uL (0.0-0.7); #Lymphocytes 2.6 thou/uL (1.20-3.40); #Monocytes 0.4 thou/uL (0.11-0.59); #Neutrophils 3.5 thou/uL (1.40-6.50); %Eosinophils 2.6 % (0.0-10.0); %Lymphocytes 38.6 % (21.0-51.0); %Monocytes 6.3 % (0.0-10.0); %Neutrophils 51.6 % (42.0-75.0); Hemoglobin 13.5 g/dL (12.0-16.0); Mean Corpuscular Hemoglobin 27.6 pg (27.0-31.0); Mean Corpuscular Volume 83.8 fL (78.0-98.0); Mean Platelet Volume 8.4 fL (7.4-10.4); Platelet Count 215 thou/uL (130-400); RBC Distribution Width 14.5 % (11.5-14.5); Red Blood Cell (RBC) Count 4.89 mill/uL (4.20-5.40); White Blood Cell (WBC) Count 6.7 thou/uL (4.8-10.8)
[2021-07-30 08:29] LABS: PTT 26.2 sec (22.9-36.1); Prothrombin Time 12.9 sec (12.0-14.7)
[2021-07-30 08:34] LABS: ALT (SGPT) 20 U/L (8-55); AST (SGOT) 27 U/L (5-34); Alkaline Phosphatase 98 U/L (40-110); Anion Gap 16 mmol/L (10-20); BUN (Urea Nitrogen) 20 mg/dL (9.8-20.1); Bilirubin, Total 0.5 mg/dL (0.2-1.2); Calc. Creatinine Clearance 0 mL/min (70-130); Calcium 9.9 mg/dL (7.8-10.44); Carbon Dioxide 21 mmol/L (23-31); Chloride 106 mmol/L (98-107); Glucose 124 mg/dL (80-115); Potassium 4.1 mmol/L (3.5-5.1); Sodium 139 mmol/L (136-145)
[2021-07-30] MEDS ORDERED: Aspirin 325 MG TAB ONE (09:24)
[2021-07-30] MEDS ORDERED: hydrALAZINE 20 MG/ML VIAL SLOW IVP PRN (10:34)
[2021-07-30 11:27] LABS: Hemoglobin A1c 6.9 % (4.0-6.0)
[2021-07-30 17:36] VITALS: BMI 33.5
[2021-07-30 19:52] LABS: SARS-CoV-2 NAA Rapid Test Not Detected (NotDetected)
[2021-07-30] MEDS: Atorvastatin Calcium 40 MG TAB PO SCH (20:30)
[2021-07-31 06:20] LABS: Cardiac Risk 4.4 (Less than 4.5)
[2021-07-31] MEDS: Aspirin 81 mg Enteric Coated Tablet PO SCH (08:01)
[2021-07-31] MEDS: Allopurinol 100 MG TAB PO SCH (08:01)
[2021-07-31] MEDS: Enoxaparin Sodium 40 MG/0.4 ML SYRINGE SC SCH (08:01)
[2021-07-31] MEDS: Clopidogrel Bisulfate 75 MG TAB PO SCH (08:01)
[2021-07-31 11:13] LABS: Syphilis Antibody Nonreactive (Nonreactive); Syphilis Antibody Index 0.04 S/CO (<1.00 Non-Reactive)
[2021-07-31] MEDS ORDERED: Dextrose 50% Abboject 50 ML SYRINGE SLOW IVP PRN (12:44)
[2021-07-31] MEDS ORDERED: Dextrose 5% in Water 1,000 ML IV PRN (12:44)
[2021-07-31] MEDS ORDERED: HumaLOG 300 UNITS/3 ML VIAL SC PRN (12:44)
[2021-07-31] MEDS ORDERED: Docusate 100 MG CAP PO PRN (12:45)
[2021-07-31] MEDS ORDERED: Polyethylene Glycol 3350 17 GM Packet PO PRN (12:45)
[2021-07-31] MEDS: metFORMIN 500 MG TAB PO SCH (17:55)
[2021-07-31] MEDS: HYDROcodone/Acetaminophen 5/325 mg Tablet PO PRN (17:55)
[2021-07-31] MEDS: Atorvastatin Calcium 40 MG TAB PO SCH (21:14)
[2021-08-01 06:14] LABS: #Basophils 0.1 thou/uL (0.0-0.2); #Eosinphils 0.2 thou/uL (0.0-0.7); #Lymphocytes 2.8 thou/uL (1.20-3.40); #Monocytes 0.5 thou/uL (0.11-0.59); #Neutrophils 2.9 thou/uL (1.40-6.50); %Eosinophils 3.3 % (0.0-10.0); %Lymphocytes 43.4 % (21.0-51.0); %Monocytes 7.1 % (0.0-10.0); %Neutrophils 45.3 % (42.0-75.0); Mean Corpuscular HGB CONC 34.9 g/dL (32.0-36.0); Mean Corpuscular Hemoglobin 29.1 pg (27.0-31.0); Mean Corpuscular Volume 83.4 fL (78.0-98.0); Mean Platelet Volume 8.2 fL (7.4-10.4); Platelet Count 194 thou/uL (130-400); RBC Distribution Width 14.4 % (11.5-14.5); Red Blood Cell (RBC) Count 4.47 mill/uL (4.20-5.40); White Blood Cell (WBC) Count 6.3 thou/uL (4.8-10.8)
[2021-08-01 06:34] LABS: Anion Gap 13 mmol/L (10-20); BUN (Urea Nitrogen) 13 mg/dL (9.8-20.1); Calc. Creatinine Clearance 96 mL/min (70-130); Calcium 9.3 mg/dL (7.8-10.44); Carbon Dioxide 22 mmol/L (23-31); Chloride 103 mmol/L (98-107); Glucose 109 mg/dL (80-115); Potassium 4.1 mmol/L (3.5-5.1); Sodium 134 mmol/L (136-145)
[2021-08-01] MEDS: Clopidogrel Bisulfate 75 MG TAB PO SCH (09:01)
[2021-08-01] MEDS: metFORMIN 500 MG TAB PO SCH (09:01)
[2021-08-01] MEDS: Allopurinol 100 MG TAB PO SCH (09:01)
[2021-08-01] MEDS: Enoxaparin Sodium 40 MG/0.4 ML SYRINGE SC SCH (09:01)
[2021-08-01] MEDS: Aspirin 81 mg Enteric Coated Tablet PO SCH (09:01)
[2021-08-01] MEDS ORDERED: Colchicine 0.6 MG TAB PO SCH (09:47)
[2021-08-01] MEDS: HYDROcodone/Acetaminophen 5/325 mg Tablet PO PRN (10:58)
[2021-08-01 12:01] VITALS: TEMP 97.6
[2021-08-01 15:57] VITALS: BP 131/83
== END 2021-08-01 17:10 | disposition home or self-care (01) | DRG 69 ==
LOC: ERS 08:00 → ERHOLD 09:55 → NEURO 16:12
PROVIDERS: ADMIT Internal Medicine; ATTEND Internal Medicine
DX: G45.9 Transient cerebral ischemic attack, unspecified (principal); Z20.822 Contact with and (suspected) exposure to COVID-19; I10 Essential (primary) hypertension; E78.5 Hyperlipidemia, unspecified; M10.9 Gout, unspecified; G43.909 Migraine, unspecified, not intractable, without status migrainosus; H53.8 Other visual disturbances; E66.9 Obesity, unspecified; E11.65 Type 2 diabetes mellitus with hyperglycemia; Z79.899 Other long term (current) drug therapy; Z79.82 Long term (current) use of aspirin; Z87.442 Personal history of urinary calculi; Z86.73 Personal history of transient ischemic attack (TIA), and cerebral infarction without residual deficits; Z90.710 Acquired absence of both cervix and uterus; Z83.3 Family history of diabetes mellitus; Z83.79 Family history of other diseases of the digestive system; Z68.33 Body mass index [BMI] 33.0-33.9, adult
CPT/HCPCS: 36415; 36416; 70450; 70496; 70498; 70551; 71045; 80048; 80053; 80061; 83036; 83090; 84443; 84484; 85025; 85610; 85652; 85730; 86038; 86225; 86780; 93005; 93306; 94760; 95712; 95819; 95957; J1650; U0002

== ENCOUNTER 2021-08-26 03:20 | Inpatient (IN) | payer MEDICARE, MEDICAID ==
[2021-08-26 03:42] LABS: #Monocytes 0.2 thou/uL (0.11-0.59); #Neutrophils 4.1 thou/uL (1.40-6.50); %Basophils 0.1 % (0.0-1.0); %Eosinophils 0.1 % (0.0-10.0); %Lymphocytes 31.4 % (21.0-51.0); %Monocytes 3.6 % (0.0-10.0); %Neutrophils 64.8 % (42.0-75.0); Mean Corpuscular HGB CONC 32.3 g/dL (32.0-36.0); Mean Corpuscular Hemoglobin 27.2 pg (27.0-31.0); Mean Corpuscular Volume 84.1 fL (78.0-98.0); Platelet Count 244 thou/uL (130-400); RBC Distribution Width 14.9 % (11.5-14.5); Red Blood Cell (RBC) Count 5.16 mill/uL (4.20-5.40); White Blood Cell (WBC) Count 6.3 thou/uL (4.8-10.8)
[2021-08-26 04:04] LABS: ALT (SGPT) 16 U/L (8-55); AST (SGOT) 19 U/L (5-34); Albumin 4.2 g/dL (3.4-4.8); Alkaline Phosphatase 76 U/L (40-110); Anion Gap 17 mmol/L (10-20); BUN (Urea Nitrogen) 30 mg/dL (9.8-20.1); Bilirubin, Total 0.6 mg/dL (0.2-1.2); Calc. Creatinine Clearance 0 mL/min (70-130); Calcium 9.7 mg/dL (7.8-10.44); Carbon Dioxide 20 mmol/L (23-31); Chloride 106 mmol/L (98-107); Globulin 3.6 g/dL (2.4-3.5); Glucose 144 mg/dL (80-115); Potassium 4.5 mmol/L (3.5-5.1); Protein, Total 7.8 g/dL (5.8-8.1); Sodium 138 mmol/L (136-145)
[2021-08-26 08:05] VITALS: BMI 35.5
[2021-08-26] MEDS ORDERED: Ondansetron ODT 4 MG TAB PO PRN (10:01)
[2021-08-26] MEDS ORDERED: Iopamidol 370 76% 100 ML VIAL ONE (11:09)
[2021-08-26] MEDS: Acetaminophen 325 MG TAB PO PRN ×2 (16:00→20:27)
[2021-08-26 18:05] LABS: SARS-CoV-2 PCR by NAA Not Detected (NotDetected)
[2021-08-26] MEDS: Colchicine 0.6 MG TAB PO SCH (20:27)
[2021-08-26] MEDS: Atorvastatin Calcium 40 MG TAB PO SCH (20:27)
[2021-08-27 05:33] LABS: Anion Gap 11 mmol/L (10-20); BUN (Urea Nitrogen) 17 mg/dL (9.8-20.1); Calc. Creatinine Clearance 108 mL/min (70-130); Carbon Dioxide 25 mmol/L (23-31); Cardiac Risk 4.4 (Less than 4.5); Chloride 108 mmol/L (98-107); Cholesterol 173 mg/dl (< 200 Desired); Glucose 104 mg/dL (80-115); HDL Cholesterol 39 mg/dL (>60 Neg Risk); LDL Cholesterol, Calculated 85 mg/dL; Sodium 140 mmol/L (136-145); Triglycerides 247 mg/dL (Less than 150)
[2021-08-27 06:47] LABS: Hemoglobin 12.6 g/dL (12.0-16.0); Mean Corpuscular Volume 84.6 fL (78.0-98.0); Mean Platelet Volume 8.6 fL (7.4-10.4); Platelet Count 224 thou/uL (130-400); RBC Distribution Width 14.6 % (11.5-14.5); Red Blood Cell (RBC) Count 4.66 mill/uL (4.20-5.40); White Blood Cell (WBC) Count 6.1 thou/uL (4.8-10.8)
[2021-08-27] MEDS: Clopidogrel Bisulfate 75 MG TAB PO SCH (08:24)
[2021-08-27] MEDS: Lisinopril 10 MG TAB PO SCH (08:24)
[2021-08-27] MEDS: Acetaminophen 325 MG TAB PO PRN (08:24)
[2021-08-27] MEDS: Allopurinol 100 MG TAB PO SCH (08:25)
[2021-08-27] MEDS: Aspirin 81 mg Enteric Coated Tablet PO SCH (08:25)
[2021-08-27] MEDS: Enoxaparin Sodium 40 MG/0.4 ML SYRINGE SC SCH (08:25)
[2021-08-27] MEDS: Colchicine 0.6 MG TAB PO SCH ×2 (08:25→21:35)
[2021-08-27] MEDS: Multivit, Therapeutic 1 TAB PO SCH (08:25)
[2021-08-27 09:57] LABS: Band 1 % (5-11); Eosinophils 2 % (0-10); Lymphocytes 55 % (21-51); MDiff Complete? YES; Monocytes 2 % (0-10); Neutrophil 40 % (42-75); RBC Morphology Normal
[2021-08-27] MEDS ORDERED: Diazepam 5 MG TAB PO SCH (14:00)
[2021-08-27] MEDS: traMADol HCl 50 MG TAB PO PRN ×2 (15:30→21:42)
[2021-08-27] MEDS ORDERED: Senokot S 8.6-50 MG TAB PO SCH (16:00)
[2021-08-27] MEDS: Senokot S 8.6-50 MG TAB PO SCH (21:35)
[2021-08-27] MEDS: Atorvastatin Calcium 40 MG TAB PO SCH (21:35)
[2021-08-28] MEDS: Multivit, Therapeutic 1 TAB PO SCH (08:57)
[2021-08-28] MEDS: Lisinopril 10 MG TAB PO SCH (08:57)
[2021-08-28] MEDS: Colchicine 0.6 MG TAB PO SCH ×2 (08:57→20:46)
[2021-08-28] MEDS: Senokot S 8.6-50 MG TAB PO SCH ×2 (08:57→20:46)
[2021-08-28] MEDS: Aspirin 81 mg Enteric Coated Tablet PO SCH (08:57)
[2021-08-28] MEDS: Clopidogrel Bisulfate 75 MG TAB PO SCH (08:57)
[2021-08-28] MEDS: Allopurinol 100 MG TAB PO SCH (08:57)
[2021-08-28] MEDS: Enoxaparin Sodium 40 MG/0.4 ML SYRINGE SC SCH (08:57)
[2021-08-28] MEDS ORDERED: PROPOFOL 200 MG/20 ML VIAL ONE (14:00)
[2021-08-28] MEDS ORDERED: PROPOFOL 20 ML ONE (14:12)
[2021-08-28] MEDS: traMADol HCl 50 MG TAB PO PRN (17:26)
[2021-08-28] MEDS ORDERED: Cepastat Lozenges 1 LOZ PO PRN (17:45)
[2021-08-28] MEDS ORDERED: Ondansetron PF 4 MG/2 ML Vial IVP PRN (17:45)
[2021-08-28] MEDS ORDERED: Morphine 4 MG/ML VIAL SLOW IVP PRN (17:46)
[2021-08-28] MEDS: Atorvastatin Calcium 40 MG TAB PO SCH (20:45)
[2021-08-29] MEDS ORDERED: Chloraseptic Spray 180 ml Bottle PO PRN ×2 (06:48→20:58)
[2021-08-29] MEDS: Multivit, Therapeutic 1 TAB PO SCH (09:02)
[2021-08-29] MEDS: Aspirin 81 mg Enteric Coated Tablet PO SCH (09:02)
[2021-08-29] MEDS: Allopurinol 100 MG TAB PO SCH (09:02)
[2021-08-29] MEDS: Colchicine 0.6 MG TAB PO SCH ×2 (09:02→21:11)
[2021-08-29] MEDS: Lisinopril 10 MG TAB PO SCH (09:02)
[2021-08-29] MEDS: Clopidogrel Bisulfate 75 MG TAB PO SCH (09:02)
[2021-08-29] MEDS: Enoxaparin Sodium 40 MG/0.4 ML SYRINGE SC SCH (09:02)
[2021-08-29] MEDS: Senokot S 8.6-50 MG TAB PO SCH ×2 (09:02→21:11)
[2021-08-29] MEDS ORDERED: Milk Of Magnesia 30 ML UDCUP PO PRN ×2 (12:11→20:58)
[2021-08-29] MEDS ORDERED: Bisacodyl 10 MG SUPP PR SCH (12:15)
[2021-08-29] MEDS ORDERED: Bisacodyl 10 MG SUPP PR PRN ×2 (12:18→20:58)
[2021-08-29] MEDS ORDERED: Polyethylene Glycol 3350 17 GM Packet PO SCH (12:30)
[2021-08-29] MEDS ORDERED: Ondansetron ODT 4 MG TAB PO PRN (20:54)
[2021-08-29] MEDS ORDERED: Acetaminophen 325 MG TAB PO PRN (20:54)
[2021-08-29] MEDS ORDERED: Morphine 4 MG/ML VIAL SLOW IVP PRN (20:57)
[2021-08-29] MEDS ORDERED: Ondansetron PF 4 MG/2 ML Vial IVP PRN (20:57)
[2021-08-29] MEDS ORDERED: traMADol HCl 50 MG TAB PO PRN (20:57)
[2021-08-29] MEDS ORDERED: Cepastat Lozenges 1 LOZ PO PRN (20:57)
[2021-08-29] MEDS: Atorvastatin Calcium 40 MG TAB PO SCH (21:11)
[2021-08-30] MEDS: Colchicine 0.6 MG TAB PO SCH ×2 (08:32→20:38)
[2021-08-30] MEDS: Senokot S 8.6-50 MG TAB PO SCH ×2 (08:33→20:38)
[2021-08-30] MEDS ORDERED: Clopidogrel Bisulfate 75 MG TAB PO SCH (09:00)
[2021-08-30] MEDS ORDERED: Lisinopril 20 MG TAB PO SCH (09:00)
[2021-08-30] MEDS ORDERED: Aspirin 81 mg Enteric Coated Tablet PO SCH (09:00)
[2021-08-30] MEDS ORDERED: Polyethylene Glycol 3350 17 GM Packet PO SCH ×2 (09:00)
[2021-08-30] MEDS ORDERED: Enoxaparin Sodium 40 MG/0.4 ML SYRINGE SC SCH (09:00)
[2021-08-30] MEDS ORDERED: Allopurinol 100 MG TAB PO SCH (09:00)
[2021-08-30] MEDS ORDERED: Multivit, Therapeutic 1 TAB PO SCH (09:00)
[2021-08-30 20:25] VITALS: BP 126/90; TEMP 97.1
[2021-08-30] MEDS: Atorvastatin Calcium 40 MG TAB PO SCH (20:38)
== END 2021-08-30 21:25 | DRG 65 ==
LOC: ERS 03:20 → INTOOBSV 05:59 → NEURO 05:59 → OBSVTOIN 08-27 14:01 → UNDODISIN 08-29 20:01
PROVIDERS: ADMIT Internal Medicine; ATTEND Internal Medicine
PROC: B24BZZ4 Ultrasonography of Heart with Aorta, Transesophageal (ICD-10-PCS; principal; 2021-08-28)
DX: I63.9 Cerebral infarction, unspecified (principal); G81.94 Hemiplegia, unspecified affecting left nondominant side; R29.711 NIHSS score 11; Z20.822 Contact with and (suspected) exposure to COVID-19; E78.5 Hyperlipidemia, unspecified; R29.810 Facial weakness; E78.00 Pure hypercholesterolemia, unspecified; M10.9 Gout, unspecified; E66.9 Obesity, unspecified; F40.240 Claustrophobia; K59.00 Constipation, unspecified; Z86.73 Personal history of transient ischemic attack (TIA), and cerebral infarction without residual deficits; Z79.899 Other long term (current) drug therapy; Z79.82 Long term (current) use of aspirin; Z79.02 Long term (current) use of antithrombotics/antiplatelets; Z79.84 Long term (current) use of oral hypoglycemic drugs; Z87.442 Personal history of urinary calculi; Z90.710 Acquired absence of both cervix and uterus; Z82.49 Family history of ischemic heart disease and other diseases of the circulatory system; Z68.35 Body mass index [BMI] 35.0-35.9, adult
CPT/HCPCS: 36415; 36416; 70450; 70496; 70498; 70551; 80048; 80053; 80061; 84484; 85025; 93005; 93312; 95712; 95819; 95957; 96372; G0378; J1650; J2270; J2405; J2704; Q9967; U0003; U0005

== ENCOUNTER 2024-05-05 10:30 | Outpatient (CLI) | payer MEDICARE, MEDICAID | END 2024-05-05 10:31 | disposition home or self-care (01) | LOC: BICMAMMO 10:30 | PROVIDERS: ATTEND Nurse Practitioner | DX: Z12.31 Encounter for screening mammogram for malignant neoplasm of breast (principal) | CPT/HCPCS: 77063; 77067 ==